=== PATIENT | female | born 1935 | race Caucasian/White ===

== ENCOUNTER 2017-01-25 19:42 | Emergency (ER) | payer MEDICARE, BC ==
[~2017-01-25] VITALS: Ht 162.6 cm; Wt 75.0 kg
[~2017-01-25 19:42] MED LIST: ADVA250A INH; ATAC16TA PO; CALC500 PO; COMBAER INH; FENO50TA PO; FOLI1TAB PO; INDA1.25 PO; LEVO25TA36 PO; MONT10TA2 PO; PRAV20TA67 PO; PRED20 PO; TAB-TAB PO; TRIA3AER; VITA400C70 PO
[2017-01-25 19:44] VITALS: BP 138/65; PULSE 65; RESP 16; TEMP 97.9; O2SAT 96
[2017-01-25] MEDS ORDERED: MECLIZINE HCL 25 MG TAB PO ONE ×2 (21:15→22:15)
[2017-01-25] MEDS ORDERED: SODIUM CHLORIDE 0.9% FLUSH 10 ML FLUSH IVF PRN (21:15)
[2017-01-25] MEDS ORDERED: LEVO25TA4 PO (21:18)
[2017-01-25] MEDS ORDERED: ISOS30TA3 PO (21:18)
[2017-01-25] MEDS ORDERED: AMLO5TAB2 PO (21:18)
[2017-01-25] MEDS ORDERED: FLUT50SP EACH NARE (21:18)
[2017-01-25] MEDS ORDERED: CAND32TA10 PO (21:18)
[2017-01-25] MEDS ORDERED: INDA1.25 PO (21:18)
--- NOTE | 2017-01-25 21:25 | PD ---
HPI Chief Complaint: Dizziness Time Seen by Provider: 20:59 Travel History International Travel<30 days: No Contact w/Intl Traveler<30days: No Traveled to known affect area: No History of Present Illness HPI 81-year-old female presents to the emergency department complaining of dizziness since this morning. States that this dizziness started whenever she got out of bed this morning. Patient states that she does not feel lightheaded and denies a spinning sensation. Patient is unable to describe the experience fully. Patient denies provocative or palliative factors. States she went to urgent care today for evaluation and they recommended she come to the emergency department further evaluation and treatment. Patient does not have a primary care physician and does not follow with any specialist. Patient admits to a "heart murmur" but she is unable to tell me the nature of this. She does state that she had a cardiac stress test a few months ago which was negative. Patient denies fever, chills, chest pain, shortness of breath, abdominal pain, or recent falls. Denies upper respiratory infection symptoms. 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,TUMOR REMOVED) Tonsillectomy: Yes (1950) Social History Alcohol Use: No Tobacco Use: No (QUIT IN 1988) Substance Use: No Allergies-Medications (Allergen,Severity, Reaction): Coded Allergies: prednisone (Verified Allergy, Intermediate, Numbness, 01/25/17) No Known Allergies (Verified Allergy, Mild, 01/25/17) Reported Meds & Prescriptions Reported Meds & Active Scripts Active Meclizine (Meclizine HCl) 25 Mg Tab 25 Mg PO TID PRN 10 Days Reported Levothyroxine (Levothyroxine Sodium) 25 Mcg Tab 25 Mcg PO DAILY Amlodipine (Amlodipine Besylate) 5 Mg Tab 5 Mg PO DAILY Indapamide 1.25 Mg Tab 1 Tab PO DAILY Isosorbide Mononitrate ER (Isosorbide Mononitrate) 30 Mg Lucy 30 Mg PO DAILY Candesartan (Candesartan Cilexetil) 32 Mg Tab 32 Mg PO DAILY Fluticasone Nasal [place] 50 Mcg/Act Naspr 50 Mcg EACH NARE DAILY 50 mcg/spray Review of Systems Except as stated in HPI: all other systems reviewed are Neg Physical Exam Narrative GENERAL: Well-developed well-nourished in no apparent distress SKIN: Focused skin assessment warm/dry. HEAD: Atraumatic. Normocephalic. EYES: Pupils equal and round. No scleral icterus. No injection or drainage. ENT: No nasal bleeding or discharge. Mucous membranes pink and moist. Tympanic membranes pearly valentin without bulging or dullness. NECK: Trachea midline. No JVD. No lymphadenopathy CARDIOVASCULAR: Regular rate and rhythm. No murmur appreciated. RESPIRATORY: No accessory muscle use. Clear to auscultation. Breath sounds equal bilaterally. GASTROINTESTINAL: Abdomen soft, non-tender, nondistended. MUSCULOSKELETAL: No obvious deformities. No clubbing. No cyanosis. No edema. NEUROLOGICAL: Awake and alert. No obvious cranial nerve deficits. Motor grossly within normal limits. Normal speech. PSYCHIATRIC: Appropriate mood and affect; insight and judgment normal. Data Data Last Documented VS Vital Signs Date Time Temp Pulse Resp B/P (MAP) Pulse Ox O2 Delivery O2 Flow Rate FiO2 01/25/17 23:37 01/25/17 23:19 56 16 65 16 54 16 01/25/17 19:44 97.9 96 Room Air Orders Orders Electrocardiogram (01/25/17 21:11) Complete Blood Count With Diff (01/25/17 21:11) Comprehensive Metabolic Panel (01/25/17 21:11) Magnesium (Mg) (01/25/17 21:11) Ckmb (Isoenzyme) Profile (01/25/17 21:11) Troponin I (01/25/17 21:11) Urinalysis - C+S If Indicated (01/25/17 21:11) Ct Brain W/O Iv Contrast(Rout) (01/25/17 21:11) Ecg Monitoring (01/25/17 21:11) Iv Access Insert/Monitor (01/25/17 21:11) Oximetry (01/25/17 21:11) Meclizine (Antivert) (01/25/17 21:15) Sodium Chloride 0.9% Flush (Ns Flush) (01/25/17 21:15) Sodium Chlor 0.9% 250 Ml Inj (Ns 250 Ml (01/25/17 21:30) Phosphorus (Po4) (01/25/17 21:17) Meclizine (Antivert) (01/25/17 22:15) Orthostatic Vital Signs (01/25/17 22:54) Ed Discharge Order (01/25/17 23:26) Labs Laboratory Tests Test 01/25/17 21:15 01/25/17 22:50 White Blood Count 7.8 TH/MM3 Red Blood Count 4.75 MIL/MM3 Hemoglobin 12.9 GM/DL Hematocrit 39.5 % Mean Corpuscular Volume 83.0 FL Mean Corpuscular Hemoglobin 27.0 PG Mean Corpuscular Hemoglobin Concent 32.6 % Red Cell Distribution Width 14.6 % Platelet Count 285 TH/MM3 Mean Platelet Volume 8.1 FL Neutrophils (%) (Auto) 67.8 % Lymphocytes (%) (Auto) 25.1 % Monocytes (%) (Auto) 3.4 % Eosinophils (%) (Auto) 2.4 % Basophils (%) (Auto) 1.3 % Neutrophils # (Auto) 5.3 TH/MM3 Lymphocytes # (Auto) 1.9 TH/MM3 Monocytes # (Auto) 0.3 TH/MM3 Eosinophils # (Auto) 0.2 TH/MM3 Basophils # (Auto) 0.1 TH/MM3 CBC Comment DIFF FINAL Differential Comment Blood Urea Nitrogen 16 MG/DL Creatinine 0.94 MG/DL Random Glucose 111 MG/DL Total Protein 8.8 GM/DL Albumin 3.8 GM/DL Calcium Level 9.2 MG/DL Magnesium Level 1.9 MG/DL Alkaline Phosphatase 71 U/L Aspartate Amino Transf (AST/SGOT) 18 U/L Alanine Aminotransferase (ALT/SGPT) 29 U/L Total Bilirubin 0.5 MG/DL Sodium Level 134 MEQ/L Potassium Level 4.1 MEQ/L Chloride Level 97 MEQ/L Carbon Dioxide Level 29.3 MEQ/L Anion Gap 8 MEQ/L Estimat Glomerular Filtration Rate 57 ML/MIN Phosphorus Level 3.4 MG/DL Total Creatine Kinase 49 U/L Troponin I 0.03 NG/ML Urine Color YELLOW Urine Turbidity CLEAR Urine pH 5.5 Urine Specific [place] 1.016 Urine Protein NEG mg/dL Urine Glucose (UA) NEG mg/dL Urine Ketones NEG mg/dL Urine Occult Blood NEG Urine Nitrite NEG Urine Bilirubin NEG Urine Urobilinogen LESS THAN 2.0 MG/DL Urine Leukocyte Esterase MOD Urine RBC 1 /hpf Urine WBC 5 /hpf Urine Squamous Epithelial Cells 1 /hpf Urine Calcium Oxalate Crystals RARE /hpf Urine Hyaline Casts 1 /lpf Urine Mucus FEW /lpf Microscopic Urinalysis Comment CULT NOT INDICATED MDM Medical Decision Making Medical Screen Exam Complete: Yes Emergency Medical Condition: Yes Differential Diagnosis BPPV, vertigo, UTI, dehydration, labyrinthitis Narrative Course 81-year-old female presents to respond complaining of dizziness since this morning. States that this dizziness started whenever she got out of bed this morning. Patient states that she does not feel lightheaded and denies a spinning sensation. Patient is unable to describe the experience fully. Patient denies provocative or palliative factors. States she went to urgent care today for evaluation and they recommended she come to the emergency department further evaluation and treatment. Patient does not have a primary care physician and does not follow with any specialist currently patient's does have a "heart murmur" but she is unable to tell me the nature of this. She does state that she had a cardiac stress test a few months ago which was negative. Patient denies fever, chills, chest pain, shortness of breath, abdominal pain, or recent falls. Denies upper respiratory infection symptoms. Vital signs stable Physical exam unremarkable. Subjective symptom exacerbation upon sitting up in bed. Last [address] 01/25/172110 Signed Impressions: Service Date/Time: January 21:42 - CONCLUSION: 1. No acute infarct, acute hemorrhage, midline shift or extra-axial fluid collections. 2. 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 3. Moderate mucosal thickening within the right maxillary sinus and bilateral ethmoid air cells and mild mucosal thickening within left maxillary sinus. Karan Sainz MD No obvious acute process on head CT. Laboratory Tests Test 01/25/17 21:15 01/25/17 22:50 White Blood Count 7.8 TH/MM3 Red Blood Count 4.75 MIL/MM3 Hemoglobin 12.9 GM/DL Hematocrit 39.5 % Mean Corpuscular Volume 83.0 FL Mean Corpuscular Hemoglobin 27.0 PG Mean Corpuscular Hemoglobin Concent 32.6 % Red Cell Distribution Width 14.6 % Platelet Count 285 TH/MM3 Mean Platelet Volume 8.1 FL Neutrophils (%) (Auto) 67.8 % Lymphocytes (%) (Auto) 25.1 % Monocytes (%) (Auto) 3.4 % Eosinophils (%) (Auto) 2.4 % Basophils (%) (Auto) 1.3 % Neutrophils # (Auto) 5.3 TH/MM3 Lymphocytes # (Auto) 1.9 TH/MM3 Monocytes # (Auto) 0.3 TH/MM3 Eosinophils # (Auto) 0.2 TH/MM3 Basophils # (Auto) 0.1 TH/MM3 CBC Comment DIFF FINAL Differential Comment Blood Urea Nitrogen 16 MG/DL Creatinine 0.94 MG/DL Random Glucose 111 MG/DL Total Protein 8.8 GM/DL Albumin 3.8 GM/DL Calcium Level 9.2 MG/DL Magnesium Level 1.9 MG/DL Alkaline Phosphatase 71 U/L Aspartate Amino Transf (AST/SGOT) 18 U/L Alanine Aminotransferase (ALT/SGPT) 29 U/L Total Bilirubin 0.5 MG/DL Sodium Level 134 MEQ/L Potassium Level 4.1 MEQ/L Chloride Level 97 MEQ/L Carbon Dioxide Level 29.3 MEQ/L Anion Gap 8 MEQ/L Estimat Glomerular Filtration Rate 57 ML/MIN Phosphorus Level 3.4 MG/DL Total Creatine Kinase 49 U/L Troponin I 0.03 NG/ML Urine Color YELLOW Urine Turbidity CLEAR Urine pH 5.5 Urine Specific [place] 1.016 Urine Protein NEG mg/dL Urine Glucose (UA) NEG mg/dL Urine Ketones NEG mg/dL Urine Occult Blood NEG Urine Nitrite NEG Urine Bilirubin NEG Urine Urobilinogen LESS THAN 2.0 MG/DL Urine Leukocyte Esterase MOD Urine RBC 1 /hpf Urine WBC 5 /hpf Urine Squamous Epithelial Cells 1 /hpf Urine Calcium Oxalate Crystals RARE /hpf Urine Hyaline Casts 1 /lpf Urine Mucus FEW /lpf Microscopic Urinalysis Comment CULT NOT INDICATED Patient states that she has been using fluticasone nasal spray for about 1 month and thinks maybe this is the cause for dizziness. States she has chronic sinus issues and congestion. Meclizine 25 mg administered for symptom relief. Patient remains symptomatic with positional changes although appears more comfortable in the laying position. A second dose of meclizine administered. 250 normal saline fluid challenge also administered. Reassessment of patient- appears more comfortable and cheery. Advised patient to follow up with primary care physician and potentially neurologist for her symptoms. Consider chronic sinusitis or recent upper respiratory infection as a cause for her symptoms. Diagnosis Primary Impression: Vertigo Referrals: Primary Care Physician Additional Instructions: Follow-up with primary care physician within 2-3 days. Take medication as prescribed for vertigo. Advised to follow up with neurology for your symptoms. If your symptoms persist or worsen return to the emergency department. Scripts Meclizine (Meclizine) 25 Mg Tab 25 MG PO TID Y for VERTIGO for 10 Days, TAB 0 Refills Prov: Isaak Mo MD 01/25/17 Disposition: 01 DISCHARGE HOME Condition: Stable Yary Nicole Jan 25, 2017 21:25
[2017-01-25] MEDS ORDERED: SODIUM CHLOR 0.9% 250 ML INJ 250 ML IV ONE (21:30)
--- NOTE | 2017-01-25 21:51 | RADRPT ---
EXAM DATE/TIME: 01/25/2017 21:42 [facility] COMPARISON: No previous studies available for comparison. INDICATIONS : Patient complains of dizziness. RADIATION DOSE: 36.31 CTDIvol (mGy) MEDICAL HISTORY : Hypertension. right eye tumor SURGICAL HISTORY : None. ENCOUNTER: Initial ACUITY: 1 day PAIN SCALE: 0/10 LOCATION: cranial TECHNIQUE: Multiple contiguous axial images were obtained of the head. Using automated exposure control and adj ustment of the mA and/or kV according to patient size, radiation dose was kept as low as reasonably a chievable to obtain optimal diagnostic quality images. DICOM format image data is available electro nically for review and comparison. FINDINGS: CEREBRUM: The ventricles are normal for age. No evidence of midline shift, mass lesion, hemorrhage or acute in farction. No extra-axial fluid collections are seen. POSTERIOR FOSSA: There is an old lacunar infarct involving the left midbrain. The cerebellum is intact. The 4th ventr icle is midline. The cerebellopontine angle is unremarkable. EXTRACRANIAL: The visualized portion of the orbits is intact. Moderate mucosal thickening is noted within the right maxillary sinus and bilateral ethmoid air cells. Mild mucosal thickening is noted within the left ma xillary sinus. SKULL: The calvaria is intact. No evidence of skull fracture. CONCLUSION: 1. No acute infarct, acute hemorrhage, midline shift or extra-axial fluid collections. 2. 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 3. Moderate mucosal thickening within the right maxillary sinus and bilateral ethmoid air cells and m ild mucosal thickening within left maxillary sinus. Karan Sainz MD on January 25, 2017 at 21:48 Board Certified Radiologist. This report was verified electronically.
[2017-01-25 22:08] LABS: AUTOMATED NEUTROPHIL # 5.3 TH/MM3 (1.8-7.7); BASOPHIL # 0.1 TH/MM3 (0-0.2); BASOPHIL % 1.3 % (0.0-2.0); EOSINOPHIL # 0.2 TH/MM3 (0-0.4); EOSINOPHIL % 2.4 % (0.0-4.0); HEMATOCRIT 39.5 % (35.0-46.0); HEMO FLAGS DIFF FINAL; LYMPH % 25.1 % (9.0-44.0); LYMPHOCYTE # 1.9 TH/MM3 (1.0-4.8); MEAN CORPUSCULAR HGB CONC 32.6 % (32.0-36.0); MONO % 3.4 % (0.0-8.0); NEUT % 67.8 % (16.0-70.0); PLATELET COUNT 285 TH/MM3 (150-450); RED BLOOD COUNT 4.75 MIL/MM3 (4.00-5.30); RED CELL DISTRIBUTION WIDTH 14.6 % (11.6-17.2); WHITE BLOOD COUNT 7.8 TH/MM3 (4.0-11.0)
[2017-01-25 22:36] LABS: ALT (GPT) 29 U/L (10-53); ANION GAP 8 MEQ/L (5-15); AST (GOT) 18 U/L (15-37); BICARBONATE 29.3 MEQ/L (21.0-32.0); BLOOD UREA NITROGEN 16 MG/DL (7-18); CHLORIDE 97 MEQ/L (98-107); GLOMERULAR FILTRATION RATE 57 ML/MIN (>89); MAGNESIUM 1.9 MG/DL (1.5-2.5); POTASSIUM 4.1 MEQ/L (3.5-5.1); SODIUM (NA) 134 MEQ/L (136-145)
[2017-01-25 22:41] LABS: ALKALINE PHOSPHATASE 71 U/L (45-117); TOTAL BILIRUBIN ADULT 0.5 MG/DL (0.2-1.0)
[2017-01-25 22:42] LABS: CREATINE KINASE 49 U/L (26-192)
[2017-01-25 23:18] LABS: BLOOD, URINE NEG (NEG); CALCIUM OXALATE CRYSTALS,URINE RARE /hpf; COMMENT (UR) CULT NOT INDICATED; CULTURE IF INDICATED CULT NOT INDICATED; GLUCOSE,URINE NEG (NEG); HYALINE CAST, URINE 1 /lpf (RARE); KETONE, URINE NEG (NEG); MUCUS URINE FEW /lpf (OCC); NITRITE,URINE NEG (NEG); PH, URINE 5.5 (5.0-8.5); SQUAMOUS EPITHELIAL CELL URINE 1 /hpf (0-5); URINE COLOR YELLOW (YELLW/STRAW)
[2017-01-25 23:19] VITALS: BP_SYST 138; BP_SYST 140; BP_SYST 154; BP_DIAS 67; BP_DIAS 70; BP_DIAS 79; RESP 16
[2017-01-25] MEDS ORDERED: MECL-62 PO (23:25)
--- NOTE | 2017-01-26 08:02 | EKG ---
Date Performed: 01/25/2017 Time Performed: 21:25:32 PTAGE: 81 years EKG: Sinus rhythm RIGHT BUNDLE BRANCH BLOCK LEFT ANTERIOR FASCICULAR BLOCK ABNORMAL ECG Compared to prior electrocardi ogram, right bundle branch block with left axis deviation is present. PREVIOUS TRACING : 07/16/1993 17.24 DOCTOR: Charles Hunt Interpretating Date/Time 01/26/2017 08:00:46
== END 2017-01-25 23:47 | disposition home or self-care (01) ==
LOC: NEPE 19:42
DX: R42 Dizziness and giddiness (principal); I45.2 Bifascicular block; J44.9 Chronic obstructive pulmonary disease, unspecified; I10 Essential (primary) hypertension; E78.00 Pure hypercholesterolemia, unspecified; E03.9 Hypothyroidism, unspecified; H91.90 Unspecified hearing loss, unspecified ear; Z88.8 Allergy status to other drugs, medicaments and biological substances; Z79.899 Other long term (current) drug therapy
CPT/HCPCS: 70450; 80053; 81001; 82550; 83735; 84100; 84484; 85025; 93005; 96360; 99285; J7050